=== PATIENT | male | born 1960 | race Native Hawaiian/Other Pacific Islander ===

== ENCOUNTER 2021-01-20 16:40 | Emergency (ER) | payer BC ==
[~2021-01-20] VITALS: Ht 193 cm; Wt 104.3 kg
[2021-01-20 17:30] VITALS: BP 168/94; TEMP 99.3
== END 2021-01-20 19:00 | disposition home or self-care (01) ==
LOC: ED 16:40
DX: J06.9 Acute upper respiratory infection, unspecified (principal); U07.1 COVID-19
CPT/HCPCS: 87635; 99282; U0003

== ENCOUNTER 2021-01-23 13:46 | Inpatient (IN) | payer BC, OTHER ==
[~2021-01-23] VITALS: Ht 185.4 cm; Wt 102.1 kg
[2021-01-23 14:39] VITALS: BP 128/76; TEMP 98.1; Ht 185.4 cm; Wt 102.1 kg
[2021-01-23 16:00] VITALS: BP 131/66; TEMP 98.4
[2021-01-23 16:30] LABS: PLATELET COUNT 183 K/uL (142-355)
[2021-01-23 16:39] LABS: POTASSIUM 4.9 mmol/L (3.6-5.2)
[2021-01-23 20:00] VITALS: BP 148/80; TEMP 98.3
[2021-01-24] VITALS: BP 160/84; TEMP 99.1
[2021-01-24 04:00] VITALS: BP 166/87; TEMP 100.7
[2021-01-24 06:06] LABS: POTASSIUM 5.6 mmol/L (3.6-5.2)
[2021-01-24 08:00] VITALS: BP 135/7; TEMP 98.4
[2021-01-24 08:57] LABS: PLATELET COUNT 165 K/uL (142-355)
[2021-01-24 09:17] LABS: POTASSIUM 4.7 mmol/L (3.6-5.2)
[2021-01-24 12:00] VITALS: BP 149/71; TEMP 98
[2021-01-24 16:00] VITALS: BP 185/90; TEMP 98.1
[2021-01-24 20:00] VITALS: BP 144/89; TEMP 98.6
[2021-01-25] VITALS: BP 130/82; TEMP 98.1
[2021-01-25 04:00] VITALS: BP 148/86; TEMP 97.7
[2021-01-25 08:00] VITALS: BP 151/77; TEMP 98.7
[2021-01-25 12:00] VITALS: BP 106/79; TEMP 98.2
[2021-01-25 16:00] VITALS: BP 149/83; TEMP 98.5
[2021-01-25 16:10] LABS: PLATELET COUNT 183 K/uL (142-355)
[2021-01-25 16:16] LABS: POTASSIUM 4.7 mmol/L (3.6-5.2)
[2021-01-25 20:00] VITALS: BP 153/83; TEMP 98.4
[2021-01-26 00:27] VITALS: BP 182/87; TEMP 98.6
[2021-01-26 04:00] VITALS: BP 153/81; TEMP 98
[2021-01-26 05:28] LABS: PLATELET COUNT 198 K/uL (142-355)
[2021-01-26 06:10] LABS: POTASSIUM 4.9 mmol/L (3.6-5.2)
[2021-01-26 08:00] VITALS: BP 144/79; TEMP 97.7
[2021-01-26 12:00] VITALS: BP 165/84; TEMP 98.2
[2021-01-26 16:00] VITALS: BP 126/67; TEMP 98.5
[2021-01-26 20:00] VITALS: BP 171/94; TEMP 98.5
[2021-01-27 00:23] VITALS: BP 178/92; TEMP 98.9
[2021-01-27 04:00] VITALS: BP 184/94; TEMP 98.6
[2021-01-27 06:12] LABS: PLATELET COUNT 209 K/uL (142-355)
[2021-01-27 06:33] LABS: POTASSIUM 5.3 mmol/L (3.6-5.2)
[2021-01-27 08:00] VITALS: BP 183/89; TEMP 99.2
[2021-01-27 12:00] VITALS: BP 181/91; TEMP 98.4
[2021-01-27 16:00] VITALS: BP 164/78; TEMP 98.5
[2021-01-27 20:00] VITALS: BP 162/80; TEMP 98.4
[2021-01-28] VITALS: BP 132/83; TEMP 99.5
[2021-01-28 04:00] VITALS: BP 152/80; TEMP 98.5
[2021-01-28 08:00] VITALS: BP 166/89; TEMP 99.1
== END 2021-01-28 14:30 | disposition home or self-care (01) | DRG 177 ==
LOC: MED/SURG 13:46
PROVIDERS: ADMIT Family Medicine; ATTEND Family Medicine
PROC: 30233K1 Transfusion of Nonautologous Frozen Plasma into Peripheral Vein, Percutaneous Approach (ICD-10-PCS; principal; 2021-01-23)
DX: U07.1 COVID-19 (principal); J12.82 Pneumonia due to coronavirus disease 2019; J15.212 Pneumonia due to Methicillin resistant Staphylococcus aureus; M62.89 Other specified disorders of muscle
CPT/HCPCS: 36415; 36600; 80053; 82728; 82805; 82948; 83735; 84100; 85027; 85379; 86140; 86900; 86901; 87040; 87070; 87077; 87185; 87186; 87205; 93005; 94667; 94668; 94760; 96366; 96367; J0456; J0696; J1450; J1650; J3370; J3475; P9017

== ENCOUNTER 2021-01-29 08:25 | Outpatient (CLI) | payer BC, OTHER ==
[~2021-01-29] VITALS: Ht 185.4 cm; Wt 100.7 kg
== END 2021-01-29 19:04 | disposition home or self-care (01) ==
LOC: INF 08:25
PROVIDERS: ATTEND Family Medicine
DX: B95.62 Methicillin resistant Staphylococcus aureus infection as the cause of diseases classified elsewhere (principal)
CPT/HCPCS: 96365; 96366; J3370

== ENCOUNTER 2021-01-30 08:57 | Outpatient (CLI) | payer BC, OTHER | END 2021-01-30 20:45 | disposition home or self-care (01) | LOC: INF 08:57 | PROVIDERS: ATTEND Family Medicine | DX: B95.62 Methicillin resistant Staphylococcus aureus infection as the cause of diseases classified elsewhere (principal) | CPT/HCPCS: 96365; 96366 ==

== ENCOUNTER 2021-01-31 09:13 | Outpatient (CLI) | payer BC, OTHER ==
[~2021-01-31] VITALS: Ht 185.4 cm; Wt 100.8 kg
== END 2021-01-31 21:40 | disposition home or self-care (01) ==
LOC: INF 09:13
PROVIDERS: ATTEND Family Medicine
DX: B95.62 Methicillin resistant Staphylococcus aureus infection as the cause of diseases classified elsewhere (principal)
CPT/HCPCS: 80202; 96365; 96366; J3370

== ENCOUNTER 2021-02-01 09:09 | Outpatient (CLI) | payer BC ==
[~2021-02-01] VITALS: Ht 185.4 cm; Wt 100.7 kg
== END 2021-02-01 21:44 | disposition home or self-care (01) ==
LOC: INF 09:09
PROVIDERS: ATTEND Family Medicine
DX: B95.62 Methicillin resistant Staphylococcus aureus infection as the cause of diseases classified elsewhere (principal)
CPT/HCPCS: 96365; 96366; J3370

== ENCOUNTER 2021-02-03 08:57 | Outpatient (CLI) | payer BC ==
[~2021-02-03] VITALS: Ht 185.4 cm; Wt 100.8 kg
== END 2021-02-03 19:05 | disposition home or self-care (01) ==
LOC: INF 08:57
PROVIDERS: ATTEND Family Medicine
DX: B95.62 Methicillin resistant Staphylococcus aureus infection as the cause of diseases classified elsewhere (principal); U07.1 COVID-19
CPT/HCPCS: 96365; 96366; J3370

== ENCOUNTER 2021-02-04 08:39 | Outpatient (CLI) | payer BC ==
[~2021-02-04] VITALS: Ht 185.4 cm; Wt 100.7 kg
== END 2021-02-04 20:07 | disposition home or self-care (01) ==
LOC: INF 08:39
PROVIDERS: ATTEND Family Medicine
DX: B95.62 Methicillin resistant Staphylococcus aureus infection as the cause of diseases classified elsewhere (principal); U07.1 COVID-19
CPT/HCPCS: 96365; 96366; J3370

== ENCOUNTER 2021-03-30 15:48 | Outpatient (CLI) | payer OTHER ==
[2021-03-30 16:56] LABS: POTASSIUM 4.2 mmol/L (3.6-5.2)
== END 2021-03-30 21:58 | disposition home or self-care (01) ==
LOC: US 15:48
PROVIDERS: ATTEND Nurse Practitioner Primary Care
DX: R60.0 Localized edema (principal)
CPT/HCPCS: 36415; 80053; 83880; 85379; Q9963

== ENCOUNTER 2021-03-30 19:29 | Emergency (ER) | payer OTHER ==
[~2021-03-30] VITALS: Ht 185.4 cm; Wt 102.1 kg
[2021-03-30 22:20] VITALS: BP 197/108; TEMP 98.8
== END 2021-03-30 22:30 | disposition short-term general hospital (02) ==
LOC: ED 19:29
PROVIDERS: Emergency Medicine Emergency Medical Services
DX: I26.99 Other pulmonary embolism without acute cor pulmonale (principal); I82.431 Acute embolism and thrombosis of right popliteal vein; Z11.52 Encounter for screening for COVID-19
CPT/HCPCS: 36415; 84484; 85610; 85730; 87635; 93005; 96360; 96361; 96365; 96375; 99285; J1644; J2270; J2405; J3490; U0003

== ENCOUNTER 2021-04-07 13:52 | Outpatient (CLI) | payer OTHER | END 2021-04-07 19:19 | disposition home or self-care (01) | LOC: US 13:52 | PROVIDERS: ATTEND Nurse Practitioner Family | DX: R60.0 Localized edema (principal) ==

== ENCOUNTER 2022-03-01 08:08 | Outpatient (CLI) | payer OTHER | END 2022-03-01 20:18 | disposition home or self-care (01) | LOC: US 08:08 | PROVIDERS: ATTEND Nurse Practitioner Family | DX: I34.0 Nonrheumatic mitral (valve) insufficiency (principal); I73.9 Peripheral vascular disease, unspecified; N28.89 Other specified disorders of kidney and ureter ==

== ENCOUNTER → 2022-03-15 | Outpatient (CLI) | payer OTHER ==
[~2022-03-15] VITALS: Ht 188 cm; Wt 98.4 kg
== END ==
LOC: NM 08:45
PROVIDERS: ATTEND Specialist
DX: M79.671 Pain in right foot (principal); M79.672 Pain in left foot; I10 Essential (primary) hypertension
CPT/HCPCS: A9500; J2785